=== PATIENT | female | born 1955 | race Caucasian/White ===

== ENCOUNTER 2022-10-15 17:58 | Emergency (ER) | payer MEDICARE, MEDICAID, SELFPAY ==
--- NOTE | ~2022-10-15 | CT_ITS ---
EXAMINATION: CT ABDOMEN AND PELVIS WITHOUT CONTRAST CLINICAL INFORMATION: COMPARISON: None available. TECHNIQUE: Multidetector volumetric imaging was performed from the superior aspect of the liver through the pubic symphysis. Sagittal and coronal reformatted images were obtained on the technologist's workstation. This CT examination was performed using dose optimization techniques as appropriate, variously including the following: *Automated exposure control *Adjustment of mA and/or kV according to patient size (this includes techniques or standardized protocols for targeted exams where dose is matched to indication/reason for exam; i.e. extremities or head) *Use of iterative reconstruction technique DLP: 1288 mGy-cm FINDINGS: LUNG BASES: The visualized lung bases are unremarkable. LIVER, GALLBLADDER, AND BILIARY TREE: The liver is normal in size, shape, and attenuation. No focal hepatic lesion or biliary ductal dilatation is present. The gallbladder is unremarkable with no evidence of radiopaque gallstones, gallbladder wall thickening, or obvious pericholecystic inflammatory changes. PANCREAS: Unremarkable. SPLEEN: Unremarkable. ADRENAL GLANDS: Unremarkable. KIDNEYS AND URETERS: The kidneys are normal in size, shape, and attenuation. No hydronephrosis, hydroureter, or calculi seen. No perinephric stranding. BLADDER: The suprapubic tube is outside the bladder. There is soft tissue swelling seen along the course of the abdominal wall adjacent to the suprapubic tube questionable for hematoma. Bladder is not distended. Bladder wall may be thickened. There is a small amount of air in the bladder. GASTROINTESTINAL TRACT: Postsurgical changes from gastric sleeve. Transverse colon colostomy. There is a parastomal hernia containing transverse colon. Wide necked hernia versus bulge in the right lower abdominal wall containing small and large bowel. No evidence for obstruction. Mild diverticulosis of the colon. Postsurgical changes to the rectum. There is abnormal soft tissue seen in the presacral space. Small bowel loops seen in the pelvis. LYMPH NODES: No enlarged lymph nodes. VASCULAR: Atherosclerotic disease. No aneurysm. PELVIC VISCERA: Uterus and is not seen and may have been removed. OSSEOUS STRUCTURES: There are degenerative changes of the spine and hip joints. There is abnormal soft tissue seen overlying the lower sacrum and coccyx and small amount of air. Findings are suggestive of soft tissue infection. There may be some bone destruction distal sacrum and coccyx worrisome for osteomyelitis. Clinical correlation recommended. CT/CT abdomen pelvis wo IV con IMPRESSION: Suprapubic tube is outside the bladder. There is soft tissue swelling of the abdominal wall adjacent to the suprapubic tube are questionable for hematoma. Postsurgical changes to the rectum. Abnormal soft tissue in the presacral space. Transverse colostomy. Parastomal hernia containing transverse colon. Right lateral abdominal wall wide necked hernia versus broad-based bulge containing small and large bowel. No evidence of obstruction. Abnormal soft tissue and air adjacent to the distal sacrum and upper coccyx and destruction of the bone suggestive of a cellulitis and osteomyelitis. Findings will be communicated by the [place] work flow pediatric dermatologist. Fleischner guidelines were followed.
[2022-10-15 18:17] VITALS: BP 109/71; PULSE 84; O2SAT 94
[2022-10-15 18:26] VITALS: BMI 45.2
--- NOTE | 2022-10-15 19:17 | ED_ITS ---
HPI - Female Genitourinary General Chief complaint: Urogenital-Female Stated complaint: catheter issue Time Seen by Provider: 10/15/22 18:19 Source: patient Mode of arrival: EMS Limitations: no limitations History of Present Illness HPI Narrative: Patient comes in emergency room complaining of a blocked suprapubic catheter. Patient states that she had a new suprapubic catheter placed approximately 1 week ago in [facility]. Patient states that she has very thick discharge from her bladder which likely blocked the tube. Patient states that she has been able to pass urine through the urethra. Patient states she is wearing depends. Patient denies fever chills. Patient concerned that there is a thick discharge surrounding the suprapubic catheter, concerned it may be infected. Related Data Allergies Allergy/AdvReac Type Severity Reaction Status Date / Time ciprofloxacin Allergy Angioedema Verified 10/15/22 18:35 erythromycin base Allergy Hives Verified 10/15/22 18:35 latex Allergy Hives Verified 10/15/22 18:35 Penicillins Allergy Hives Verified 10/15/22 18:35 succinylcholine Allergy Unconscious Verified 10/15/22 18:35 codeine AdvReac Eye Verified 10/15/22 18:35 Swelling glyburide AdvReac Hives Verified 10/15/22 18:35 hydromorphone AdvReac Confusion Verified 10/15/22 18:35 irbesartan [From Avapro] AdvReac Dizziness Verified 10/15/22 18:35 lisinopril AdvReac Hives Verified 10/15/22 18:35 metformin AdvReac Itching Verified 10/15/22 18:35 pramlintide AdvReac Itching Verified 10/15/22 18:35 marcolide antibiotics Allergy Itching Uncoded 10/15/22 18:35 Review of Systems Review of Systems: Constitutional : No Weight loss, No Fever, No Chills, No Night Sweats, No Fatigue, No Malaise ENT/Mouth : No Hearing loss, No Ear Pain, No Nasal Congestion, No Sinus Pain, No Hoarseness, No sore throat, No Rhinorrhea, No Swallowing Difficulty Eyes: No Eye Pain, No Swelling, No Redness, No Foreign Body, No Discharge, No Vision Changes Cardiovascular : No Chest Pain, No SOB, No Dyspnea on Exertion, No Orthopnea, No Edema, No Palpitations Respiratory : No Cough, No Sputum, No Wheezing, No Smoke Exposure, No Dyspnea Gastrointestinal : No Nausea, No Vomiting, No Diarrhea, No Constipation, No abdominal Pain, No Hematochezia, No Melena Genitourinary : Complaining of suprapubic catheter blockage and site infection? No Dysuria, No Urinary Frequency, No Hematuria, No Urinary Incontinence, No Urgency, No Flank Pain, No Urinary Flow Changes, No Hesitancy Musculoskeletal : No joint pain, No Myalgias, No Joint Swelling Skin : No Skin Lesions, No rash Neuro : No Weakness, No Numbness, No Paresthesias, No Loss of Consciousness, No Dizziness, No Headache Psych : No Anxiety/Panic, No Depression, No SI/HI/AH/VH, No Social Issues, Heme/Lymph: No Bruising, No Bleeding,No Lymphadenopathy Endocrine : No Polyuria, No Polydipsia, No Temperature Intolerance PMFSH Past Medical History Medical History (Updated 10/15/22 @ 22:21 by Rona Camarena MD) CHF (congestive heart failure) Chronic kidney disease Chronic respiratory failure with hypoxia and hypercapnia COPD (chronic obstructive pulmonary disease) Hemorrhagic cerebrovascular accident (CVA) Subglottic stenosis Suprapubic catheter Tracheobronchitis Type 2 diabetes mellitus Social History Social History Alcohol intake: never Smoked in Last 30 Days: No Use of substances other than those prescribed or required for medical reasons: No Advance Directives: No Advance Directives Information Provided: No Patient : No Physical Exam Vital Signs: Vital Signs: Last Vital Signs Pulse 84 10/15/22 22:02 Resp 20 10/15/22 22:02 BP 138/50 L 10/15/22 22:02 Pulse Ox 94 10/15/22 22:02 O2 Del Method Nasal Cannula 10/15/22 22:02 O2 Flow Rate 2 10/15/22 22:02 BMI result Body Mass Index 45.2 Const: Other: Appearance: Alert. Oriented X3. No acute distress. Eyes: Pupils equal, round and reactive to light. ENT: Pharynx normal. Neck: Normal inspection. Neck supple. No lymph nodes noted. No crepitus CVS: Normal heart rate and rhythm. Pulses normal. Normal S1 and S2 Respiratory: No respiratory distress. Breath sounds normal. No Wheezing. No rales Abdomen: Soft and nontender. No rigidity. No distention. Patient has a suprapu bic catheter, patient flushes but patient states that she has intense abdominal pain with flushing. Skin: Skin warm and dry. Normal skin color. Normal skin turgor. Extremities: No lower extremity edema. No Lacerations. No Rash Neuro: Oriented X 3. No motor deficit. No sensory deficit. Moving all extremities. No slurred speech. CN 2 through 12 grossly intact Psych: calm, cooperative, normal affect Course Course Course Narrative: -my interpretation of labs: White blood cell count 14.2, urine positive expected for chronic Bran catheter. Patient recently had the Bran catheter placed in the suprapubic area, being treated with IV fluids and ceftriaxone empirically. Sepsis not suspected. -CT scan of the pelvis for placement pending. -sign-out given to Dr. Harrison Medications Administered Generic Name Dose Route Start Last Admin Trade Name Freq PRN Reason Stop Dose Admin Sodium Chloride 1,000 mls @ 999 mls/hr 10/15/22 21:58 10/15/22 22:13 Ns IVCONT 10/15/22 22:58 999 mls/hr .Q1H1M ONE Administration Ceftriaxone Sodium 1 gm/ 50 mls @ 100 mls/hr 10/15/22 21:58 10/15/22 22:16 Sodium Chloride IV 10/15/22 22:27 100 mls/hr ONCE ONE Administration Medical Decision Making Lab Data 10/15/22 21:11 10/15/22 21:11 Labs: Lab Results 10/15/22 10/15/22 10/15/22 Range/Units 21:11 21:11 21:11 WBC 14.2 H (4.8-10.8) X10*3/uL RBC 3.97 L (4.20-5.50) X10*6/uL Hgb 11.3 L (12.0-16.0) g/dl Hct 34.4 L (37.0-47.0) % MCV 86.6 (80.0-98.0) fL MCH 28.5 (27.0-33.0) pg MCHC 32.8 (31.0-35.0) g/dl RDW 13.4 (11.0-16.0) % Plt Count 272 (160-400) X10*3/uL MPV 9.7 (9.4-12.3) fL Immature Gran % (Auto) 0.5 H (0.0-0.4) % Neut % (Auto) 76.8 H (45-73) % Lymph % (Auto) 11.2 L (20-40) % [place] % (Auto) 8.6 (2-11) % Eos % (Auto) 2.5 (0-4) % Baso % (Auto) 0.4 (0-2) % Lymph # (Auto) 1.6 (1.2-4.9) X10*3/uL [place] # (Auto) 1.2 (0.1-1.2) X10*3/uL Eos # (Auto) 0.4 (0.0-0.4) X10*3/uL Baso # (Auto) 0.1 (0.0-0.2) X10*3/uL Abs Immat Gran (auto) 0.07 H (0.00-0.03) X10*3/uL Absolute Neuts (auto) 10.9 H (2.0-8.3) x10*3/uL Absolute Nucleated RBC 0.000 (0.0-0.012) X10*3/uL Nucleated RBC % (auto) 0.0 (0.0-0.2) /100WBC Sodium 135 (135-145) mmol/L Potassium 4.4 (3.3-5.1) mmol/L Chloride 96 (96-108) mmol/L Carbon Dioxide 31 H (22-29) mmol/L Anion Gap 12 (12-20) BUN 44 H (9-16) mg/dL Creatinine 1.68 H (0.5-1.4) mg/dL Estim Creat Clear Calc 47.3 Estimated GFR 30 Random Glucose 225 H (60-115) mg/dL Lactic Acid 1.5 (0.5-2.0) mmol/L Calcium 9.6 (8.4-10.2) mg/dL Total Bilirubin 0.7 (0.0-1.0) mg/dL Direct Bilirubin 0.3 (0.0-0.5) mg/dL AST 15 (5-31) U/L ALT 18 (0-31) U/L Alkaline Phosphatase 88 (39-117) U/L Total Protein 7.0 (6.5-8.0) g/dL Albumin 3.4 L (3.5-5.0) g/dL Urine Color Urine Appearance Urine pH (5.0-9.0) Ur Specific [place] (1.005-1.025) Urine Protein (Neg-Trace) mg/dL Urine Glucose (UA) (Negative) mg/dL Urine Ketones (Negative) mg/dL Urine Blood (Negative) Urine Nitrite (Negative) Ur Leukocyte Esterase (Negative) Urine RBC (0-2) /HPF Urine WBC (0-5) /HPF Ur Squamous Epith Cells (0-2) /HPF Urine Bacteria (None Seen) Hyaline Casts (0-2) /LPF Urine Yeast 10/15/22 Range/Units 21:25 WBC (4.8-10.8) X10*3/uL RBC (4.20-5.50) X10*6/uL Hgb (12.0-16.0) g/dl Hct (37.0-47.0) % MCV (80.0-98.0) fL MCH (27.0-33.0) pg MCHC (31.0-35.0) g/dl RDW (11.0-16.0) % Plt Count (160-400) X10*3/uL MPV (9.4-12.3) fL Immature Gran % (Auto) (0.0-0.4) % Neut % (Auto) (45-73) % Lymph % (Auto) (20-40) % [place] % (Auto) (2-11) % Eos % (Auto) (0-4) % Baso % (Auto) (0-2) % Lymph # (Auto) (1.2-4.9) X10*3/uL [place] # (Auto) (0.1-1.2) X10*3/uL Eos # (Auto) (0.0-0.4) X10*3/uL Baso # (Auto) (0.0-0.2) X10*3/uL Abs Immat Gran (auto) (0.00-0.03) X10*3/uL Absolute Neuts (auto) (2.0-8.3) x10*3/uL Absolute Nucleated RBC (0.0-0.012) X10*3/uL Nucleated RBC % (auto) (0.0-0.2) /100WBC Sodium (135-145) mmol/L Potassium (3.3-5.1) mmol/L Chloride (96-108) mmol/L Carbon Dioxide (22-29) mmol/L Anion Gap (12-20) BUN (9-16) mg/dL Creatinine (0.5-1.4) mg/dL Estim Creat Clear Calc Estimated GFR Random Glucose (60-115) mg/dL Lactic Acid (0.5-2.0) mmol/L Calcium (8.4-10.2) mg/dL Total Bilirubin (0.0-1.0) mg/dL Direct Bilirubin (0.0-0.5) mg/dL AST (5-31) U/L ALT (0-31) U/L Alkaline Phosphatase (39-117) U/L Total Protein (6.5-8.0) g/dL Albumin (3.5-5.0) g/dL Urine Color Yellow Urine Appearance Turbid Urine pH 5.0 (5.0-9.0) Ur Specific [place] 1.015 (1.005-1.025) Urine Protein 300 (3+) H (Neg-Trace) mg/dL Urine Glucose (UA) 500 H (Negative) mg/dL Urine Ketones Negative (Negative) mg/dL Urine Blood Large (3+) H (Negative) Urine Nitrite Negative (Negative) Ur Leukocyte Esterase Large (3+) H (Negative) Urine RBC >20 H (0-2) /HPF Urine WBC >50 H (0-5) /HPF Ur Squamous Epith Cells 3-5 (0-2) /HPF Urine Bacteria 4+ (None Seen) Hyaline Casts >20 (0-2) /LPF Urine Yeast Present Discharge Plan Discharge Clinical Impression: Blocked suprapubic catheter Patient Disposition: Still a Patient
[2022-10-15 21:23] LABS: MANUAL DIFF FLAG NO
[2022-10-15 21:24] LABS: Basophils Absolute Auto 0.1 X10*3/uL (0.0-0.2); Basophils Percent Auto 0.4 % (0-2); Eosinophils Absolute Auto 0.4 X10*3/uL (0.0-0.4); Eosinophils Percent Auto 2.5 % (0-4); Hematocrit 34.4 % (37.0-47.0); Hemoglobin 11.3 g/dl (12.0-16.0); Imm Gran Abs Auto 0.07 X10*3/uL (0.00-0.03); Imm Gran Pct Auto 0.5 % (0.0-0.4); Lymphocytes Absolute Auto 1.6 X10*3/uL (1.2-4.9); Lymphocytes Percent Auto 11.2 % (20-40); Mean Corpuscular HGB Conc 32.8 g/dl (31.0-35.0); Mean Corpuscular Hemoglobin 28.5 pg (27.0-33.0); Mean Corpuscular Volume 86.6 fL (80.0-98.0); Mean Platelet Volume 9.7 fL (9.4-12.3); Monocytes Absolute Auto 1.2 X10*3/uL (0.1-1.2); Monocytes Percent Auto 8.6 % (2-11); Neutrophils Absolute Auto 10.9 x10*3/uL (2.0-8.3); Neutrophils Percent Auto 76.8 % (45-73); Platelet Count 272 X10*3/uL (160-400); Red Blood Count 3.97 X10*6/uL (4.20-5.50); Red Cell Distribution Width 13.4 % (11.0-16.0); White Blood Count 14.2 X10*3/uL (4.8-10.8)
[2022-10-15 21:39] LABS: Lactic Acid 1.5 mmol/L (0.5-2.0)
[2022-10-15 21:42] LABS: Appearance Urine Turbid; Color Urine Yellow; Glucose Urine UA 500 mg/dL (Negative); Leukocyte Esterase Urine Large (3+) (Negative); Nitrite Urine Negative (Negative); Specific Gravity - Urine 1.015 (1.005-1.025); UMIC TRIGGER UACC YES; Urine Blood Large (3+) (Negative); Urine Ketones Negative (Negative); Urine Protein 300 (3+) mg/dL (Neg-Trace)
[2022-10-15 21:45] LABS: Alanine Aminotransferase 18 U/L (0-31); Albumin Level 3.4 g/dL (3.5-5.0); Alkaline Phosphatase 88 U/L (39-117); Anion Gap 12 (12-20); Aspartate Amino Transferase 15 U/L (5-31); Bilirubin Direct 0.3 mg/dL (0.0-0.5); Bilirubin Total 0.7 mg/dL (0.0-1.0); Blood Urea Nitrogen 44 mg/dL (9-16); Calcium 9.6 mg/dL (8.4-10.2); Carbon Dioxide 31 mmol/L (22-29); Chloride 96 mmol/L (96-108); Creatinine Clr Calc Pharmacy 47.3; Estimated Glomerular Filt Rate 30; Glucose Random 225 mg/dL (60-115); Potassium 4.4 mmol/L (3.3-5.1); Sodium 135 mmol/L (135-145)
--- NOTE | 2022-10-15 21:51 | PC.NURSE ---
pt returned from ct-scan
[2022-10-15 21:57] LABS: Bacteria Urine 4+ (None Seen); Hyaline Casts Urine >20 /LPF (0-2); RBC Urine >20 /HPF (0-2); UACC Culture Trigger YES; WBC Urine >50 /HPF (0-5)
[2022-10-15 22:02] VITALS: BP 138/50; PULSE 84; RESP 20; O2SAT 94
[2022-10-15] MEDS: 0.9 % Sodium Chloride 1,000 ML 999 ML IVCONT (22:13)
[2022-10-15] MEDS: cefTRIAXone sodium 1 GM in 0.9 % Sodium Chloride 50 ML IV (22:16)
--- NOTE | 2022-10-15 22:37 | PC.NURSE ---
pt suctioned via trach by resp therapy
--- NOTE | 2022-10-15 23:37 | P.HPHOSP_ITS ---
History of Present Illness Date of Service: 10/15/22 Chief Complaint: Malfunctioning suprpubic catheter 67 year old female with CHF (congestive heart failure), mobibid obesity s/p gastric sleeve, History of colorectal cancer, History of hemorrhagic stroke with residual hemiplegia, History of respiratory failure s/p trach, diabtes, never seen at this hospital before, PCP within [facility]. She presents here with complaint of recently inserted suprapubic catheter at [facility] to maintain skin integrity not working and has noticed a thick discharge from the urine. She reports no pain. UA is positive for UTI. CT shows Suprapubic tube is outside the bladder. There is soft tissue swelling of the abdominal wall adjacent to the suprapubic tube are questionable for hematoma . Review of Systems 2 Review of Systems: Gen: no fever Resp: no sob, no cough CV: no chest, no WINN, no leg edema GI: No n/v, no abd pain Neuro: No confusion no dysuria Yes all other systems are reviewed and are negative [facility] Medical History (Updated 11/15/22 @ 05:58 by Danny Cheng MD) Subglottic stenosis COPD (chronic obstructive pulmonary disease) Tracheobronchitis Chronic respiratory failure with hypoxia and hypercapnia Hemorrhagic cerebrovascular accident (CVA) Suprapubic catheter Chronic kidney disease Type 2 diabetes mellitus CHF (congestive heart failure) Social History Alcohol intake: never Smoked in Last 30 Days: No Use of substances other than those prescribed or required for medical reasons: No Advance Directives: No Advance Directives Information Provided: No Patient : No Meds Allergies Allergy/AdvReac Type Severity Reaction Status Date / Time ciprofloxacin Allergy Angioedema Verified 10/15/22 18:35 erythromycin base Allergy Hives Verified 10/15/22 18:35 latex Allergy Hives Verified 10/15/22 18:35 Penicillins Allergy Hives Verified 10/15/22 18:35 succinylcholine Allergy Unconscious Verified 10/15/22 18:35 codeine AdvReac Eye Verified 10/15/22 18:35 Swelling glyburide AdvReac Hives Verified 10/15/22 18:35 hydromorphone AdvReac Confusion Verified 10/15/22 18:35 irbesartan [From Avapro] AdvReac Dizziness Verified 10/15/22 18:35 lisinopril AdvReac Hives Verified 10/15/22 18:35 metformin AdvReac Itching Verified 10/15/22 18:35 pramlintide AdvReac Itching Verified 10/15/22 18:35 marcolide antibiotics Allergy Itching Uncoded 10/15/22 18:35 Home Medications Medication Instructions Recorded Confirmed Last Taken Type atorvastatin 10 mg tablet 10 mg PO DAILY 10/15/22 10/15/22 Unknown History duloxetine 60 mg capsule,delayed 60 mg PO BID 10/15/22 10/15/22 Unknown History release furosemide 20 mg tablet 20 mg PO BID 10/15/22 10/15/22 Unknown History gabapentin 300 mg capsule 600 mg PO BID 10/15/22 10/15/22 Unknown History metoprolol succinate 25 mg 25 mg PO DAILY 10/15/22 10/15/22 Unknown History tablet,extended release 24 hr pantoprazole 40 mg tablet,delayed 40 mg PO BID 10/15/22 10/15/22 Unknown History release spironolactone 25 mg tablet 25 mg PO DAILY 10/15/22 10/15/22 Unknown History tramadol 50 mg tablet 50 mg PO DAILY PRN Pain, Moderate 10/15/22 10/15/22 Unknown History Physical Exam 2 Vital Signs and Narrative: Vital Signs: Last Vital Signs Pulse 84 10/15/22 22:02 Resp 20 10/15/22 22:02 BP 138/50 L 10/15/22 22:02 Pulse Ox 94 10/15/22 22:02 O2 Del Method Nasal Cannula 10/15/22 22:02 O2 Flow Rate 2 10/15/22 22:02 BMI result Body Mass Index 45.2 Const: Other: Constitutional: Alert, in no distress, overweight. Mental Status: Oriented to person, place and time. Eyes: Pupils are equal, round and reactive to light. Ear, Nose and Throat: Oropharynx clear, mucous membranes moist. Ears and nose without eformities. Trachea midline. Respiratory: Clear to auscultation. No wheezing, rales or rhonchi. Cardiovascular: S1 S2 regular. No murmurs, rubs or gallops. Gastrointestinal: Abdomen soft, non-tender, non-distended. Normal bowel sounds.? Neurologic: Cranial nerves II-XII grossly intact. No focal neurological deficits. Moves all extremities spontaneously.? Skin: No rashes or lesions.? Musculoskeletal: No cyanosis or clubbing. Psychiatric: Normal mood and affect? Results Labs 10/15/22 21:11 10/15/22 21:11 Labs: Laboratory Results - last 24 hr 10/15/22 10/15/22 10/15/22 21:11 21:11 21:11 MCV 86.6 MCH 28.5 MCHC 32.8 RDW 13.4 Plt Count 272 MPV 9.7 Immature Gran % (Auto) 0.5 H Neut % (Auto) 76.8 H Lymph % (Auto) 11.2 L [place] % (Auto) 8.6 Eos % (Auto) 2.5 Baso % (Auto) 0.4 Lymph # (Auto) 1.6 [place] # (Auto) 1.2 Eos # (Auto) 0.4 Baso # (Auto) 0.1 Abs Immat Gran (auto) 0.07 H Absolute Neuts (auto) 10.9 H Absolute Nucleated RBC 0.000 Nucleated RBC % (auto) 0.0 Anion Gap 12 Estim Creat Clear Calc 47.3 Estimated GFR 30 Random Glucose 225 H Lactic Acid 1.5 Calcium 9.6 Total Bilirubin 0.7 Direct Bilirubin 0.3 AST 15 ALT 18 Alkaline Phosphatase 88 Total Protein 7.0 Albumin 3.4 L Urine Color Urine Appearance Urine pH Ur Specific [place] Urine Protein Urine Glucose (UA) Urine Ketones Urine Blood Urine Nitrite Ur Leukocyte Esterase Urine RBC Urine WBC Ur Squamous Epith Cells Urine Bacteria Hyaline Casts Urine Yeast 10/15/22 21:25 MCV MCH MCHC RDW Plt Count MPV Immature Gran % (Auto) Neut % (Auto) Lymph % (Auto) [place] % (Auto) Eos % (Auto) Baso % (Auto) Lymph # (Auto) [place] # (Auto) Eos # (Auto) Baso # (Auto) Abs Immat Gran (auto) Absolute Neuts (auto) Absolute Nucleated RBC Nucleated RBC % (auto) Anion Gap Estim Creat Clear Calc Estimated GFR Random Glucose Lactic Acid Calcium Total Bilirubin Direct Bilirubin AST ALT Alkaline Phosphatase Total Protein Albumin Urine Color Yellow Urine Appearance Turbid Urine pH 5.0 Ur Specific [place] 1.015 Urine Protein 300 (3+) H Urine Glucose (UA) 500 H Urine Ketones Negative Urine Blood Large (3+) H Urine Nitrite Negative Ur Leukocyte Esterase Large (3+) H Urine RBC >20 H Urine WBC >50 H Ur Squamous Epith Cells 3-5 Urine Bacteria 4+ Hyaline Casts >20 Urine Yeast Present Imaging Radiologist's Impressions: Impressions Abdomen/Pelvis CT 10/15/22 22:00 IMPRESSION: Suprapubic tube is outside the bladder. There is soft tissue swelling of the abdominal wall adjacent to the suprapubic tube are questionable for hematoma. Postsurgical changes to the rectum. Abnormal soft tissue in the presacral space. Transverse colostomy. Parastomal hernia containing transverse colon. Right lateral abdominal wall wide necked hernia versus broad-based bulge containing small and large bowel. No evidence of obstruction. Abnormal soft tissue and air adjacent to the distal sacrum and upper coccyx and destruction of the bone suggestive of a cellulitis and osteomyelitis. Findings will be communicated by the [place] work flow heavy equipment operator/paver. Fleischner guidelines were followed. Assessment and Plan (1) Type 2 diabetes mellitus: Status: Acute Plan 67 year old female with CHF (congestive heart failure), mobibid obesity s/p gastric sleeve, History of colorectal cancer, History of hemorrhagic stroke with residual hemiplegia, History of respiratory failure s/p trach, diabtes, never seen at this hospital before, PCP within [facility]. She presents here with malfunctioning of recently inserted suprpubic catheter at [facility] to maintain skin integrity, also with UTI 1. Malfuctioning Suprapubic catheter--likely needs to be removed and reinserted, consult urology 2. UTI--send culture, continue Ceftriaxone 2.?Type 2 diabetes mellitus On Tresiba and Novolog at home. Add Sliding and Tresiba interchange 3.?History of respiratory failureCurrently Has tracheotomy in place On albuterol and DuoNebs as needed On continuous O2 ?at 2 L?via trach 4.?H/O gastric sleeve? 5.?History of colorectal cancerFollow-up with specialist?in [place] Has colostomy in place ? 6.Unspecified ?CHF (congestive heart failure)Do es not follows up with cardiology, no exacerbation On spironolactone, metoprolol?and furosemide 7.?History of hemorrhagic stroke with residual Right-sided hemiplegia Time Spent With Patient Time: Total time managing care of this patient today ____ minutes. Quality Stroke Does the patient have a stroke diagnosis?: No VTE Prior VTE?: No VTE Risk Level:: Medical - moderate - high VTE Device Contraindication: Treatment Not Indicated VTE Drug Contraindication: N/A - Med Ordered
[2022-10-16 00:16] VITALS: BP 120/48; PULSE 87; RESP 20; TEMP 37.4; O2SAT 98
[2022-10-16] MEDS: traMADoL HCL 50 MG TABLET PO (00:22)
[2022-10-16] MEDS: Gabapentin 300 MG CAPSULE 600 MG PO (00:22)
[2022-10-16] MEDS: Fluconazole 150 MG TABLET PO (00:23)
[2022-10-16] MEDS: Furosemide 20 MG TABLET PO (00:23)
[2022-10-16] MEDS: DULoxetine HCl 60 MG CAPSULE.DR PO (00:23)
--- NOTE | 2022-10-16 00:48 | PC.NURSE ---
#22 page cath placed pt tolerated well
== END 2022-10-16 02:50 | disposition home or self-care (01) ==
PROVIDERS: Emergency Provider Emergency Medicine
DX: T83.098A Other mechanical complication of other urinary catheter, initial encounter (principal); R10.2 Pelvic and perineal pain; Y73.8 Miscellaneous gastroenterology and urology devices associated with adverse incidents, not elsewhere classified; Y92.9 Unspecified place or not applicable; Z79.899 Other long term (current) drug therapy
CPT/HCPCS: 36415; 74176; 80048; 80076; 81001; 83605; 85025; 87040; 87086; 96361; 96374; 96375; 99285; J0696

== ENCOUNTER → 2022-10-15 19:16 | Outpatient (BNV) | payer MEDICARE, MEDICAID, SELFPAY | PROVIDERS: Emergency Provider Emergency Medicine; Visit Provider Internal Medicine | DX: I69.351 Hemiplegia and hemiparesis following cerebral infarction affecting right dominant side (principal); E11.9 Type 2 diabetes mellitus without complications; Z98.84 Bariatric surgery status | CPT/HCPCS: 99283 ==